=== PATIENT | female | born 1985 | race African-American/Black ===

== ENCOUNTER 2020-02-09 18:15 | Emergency (ER) | payer SELFPAY ==
[2020-02-09] MEDS ORDERED: NA CHLORIDE 0.9% 1,000 ML ONE (19:20)
[2020-02-09] MEDS ORDERED: ACETAMINOPHEN 500 MG TAB ONE (19:20)
[2020-02-09 19:54] LABS: Absolute Lymphocytes (CBC) 1.9 K/uL (0.7-4.9); Basophils % 0.6 % (0-1.3); Hematocrit 33.8 % (36.0-45.0); MPV 9.2 fL (7.6-11.3); RBC Red Blood Cell Count 3.95 M/uL (3.86-4.86)
[2020-02-09] MEDS ORDERED: LORazepam 2 MG/ML VIAL ONE (19:59)
[2020-02-09 20:13] LABS: ALT/SGPT 59 U/L (12-78); AST/SGOT 67 U/L (15-37); Albumin 3.7 g/dL (3.4-5.0); Alkaline Phosphatase 77 U/L (45-117); BUN Blood Urea Nitrogen 8 mg/dL (7-18); Bicarbonate 26 mmol/L (21-32); Bilirubin Direct 0.2 mg/dL (0-0.2); Bilirubin Total 0.6 mg/dL (0.2-1.0); Glucose Level 99 mg/dL (74-106); Lipase 56 U/L (73-393); Protein, Total 8.3 g/dL (6.4-8.2); Sodium Level 134 mmol/L (136-145)
--- NOTE | 2020-02-09 20:18 | RAD REPORT ---
EXAM DESCRIPTION: CTAbdomen Pelvis W Contrast - 02/09/2020 8:03 pm CLINICAL HISTORY: Abdominal pain. right flankl pain COMPARISON: No comparisons TECHNIQUE: Biphasic CT imaging of the abdomen and pelvis was performed with 100 ml non-ionic IV cont rast. All CT scans are performed using dose optimization technique as appropriate and may include automated exposure control or mA/KV adjustment according to patient size. FINDINGS: The lung bases are clear. The liver, spleen, pancreas, adrenal glands are within normal limits. Areas of diminished density are seen in both renal cortices most compatible with pyelonephritis. No abscess. Mild urinary wall thick ening is seen likely indicating cystitis. No bowel obstruction, free air, free fluid or abscess. The appendix is normal. No evidence of signi ficant lymphadenopathy. No suspicious bony findings. IMPRESSION: Mild bilateral pyelonephritis suspected. Cystitis.
[2020-02-09] MEDS ORDERED: CEFTRIAXONE 1000 MG/VIAL ONE (20:42)
[2020-02-09] MEDS ORDERED: NA CHLORIDE 0.9% 50 ML IV ONE (20:43)
[2020-02-09 22:28] LABS: Urine Blood 2+ (NEG); Urine Glucose NEGATIVE (NEG); Urine Protein 1+ (NEG); Urine pH 8.5 (5.0-7.0)
--- NOTE | 2020-02-09 22:44 | ER ---
Nurse's Notes [facility] – [place], [place] Name: Bernadette Rivas Age: 34 yrs Sex: Female : 1985 Arrival Date: 02/09/2020 Time: 18:22 Bed 14 Private MD: Diagnosis: Bilateral Pyelonephritis Presentation: 02/08 18:27 Chief complaint: Patient states: Body aches, fever, right sided abd pain for 5 days. No ll1 appetite. Fever 102 at home. Coronavirus screen: Proceed with normal triage. Patient denies a cough. Patient denies shortness of breath or difficulty breathing. Patient reports a measured and/or subjective temperature greater than 100.4F. Patient denies travel on a cruise ship or to a country the [facility] currently lists as an affected area. Patient denies contact with known and/or suspected case of COVID-19. Ebola Screen: Patient denies travel to an Ebola-affected area in the 21 days before illness onset. Initial Sepsis Screen: Does the patient meet any 2 criteria? Temp <36.0*C (96.8*F)) or > 38.3*C (100.9*F). HR > 90 bpm. Yes Does the patient have a suspected source of infection? Yes: Acute abdominal pain. Risk Assessment: Do you want to hurt yourself or someone else? Patient reports no desire to harm self or others. Onset of symptoms was February 03, 2020. 18:27 Method Of Arrival: Ambulatory ll1 18:27 Acuity: HALLIE 3 ll1 Triage Assessment: 18:45 General: Appears in no apparent distress. uncomfortable, Behavior is calm, cooperative, vc appropriate for age. Pain: Complains of pain in generalized Pain does not radiate. Pain currently is 8 out of 10 on a pain scale. Quality of pain is described as aching. Historical: - Allergies: 18:30 No Known Allergies; ll1 - PSHx: 18:30 ; ll1 - Immunization history:: Flu vaccine is not up to date. - Social history:: Smoking status: Patient denies any tobacco usage or history of. Patient uses alcohol, only on a social basis. Patient/guardian denies using street drugs, tobacco products. Screenin:45 Abuse screen: Denies threats or abuse. Nutritional screening: No deficits noted. vc Tuberculosis screening: No symptoms or risk factors identified. Fall Risk None identified. Assessment: 18:40 Neuro: Level of Consciousness is obeys commands, lethargic, Oriented to person, place, vc time, situation, Appropriate for age. Cardiovascular: Capillary refill < 3 seconds Patient's skin is warm and dry. Rhythm is sinus rhythm. Cardiovascular: Rhythm is sinus tachycardia. Respiratory: Airway is patent Respiratory effort is even, unlabored, Respiratory pattern is regular, symmetrical. GI: No signs and/or symptoms were reported involving the gastrointestinal system. : Urine is cloudy. Derm: Skin temperature is warm. Musculoskeletal: Circulation, motion, and sensation intact. Range of motion: intact in all extremities. 19:40 Reassessment: Patient appears in no apparent distress at this time. Patient and/or vc family updated on plan of care and expected duration. Pain level reassessed. Patient states symptoms have not improved. 20:40 Reassessment: Patient appears in no apparent distress at this time. Patient and/or vc family updated on plan of care and expected duration. Pain level reassessed. Patient states symptoms have not improved. 21:40 Reassessment: Patient appears in no apparent distress at this time. Patient and/or vc family updated on plan of care and expected duration. Pain level reassessed. Patient is alert, oriented x 3, equal unlabored respirations, skin warm/dry/pink. Patient states symptoms have improved. 22:40 Reassessment: Patient appears in no apparent distress at this time. Patient and/or vc family updated on plan of care and expected duration. Pain level reassessed. Patient is alert, oriented x 3, equal unlabored respirations, skin warm/dry/pink. Patient states feeling better. Patient states symptoms have improved. Vital Signs: 18:27 BP 130 / 94; Pulse 115; Resp 17; Temp 101.2; Pulse Ox 96% ; Weight 69.4 kg; Height 5 ll1 ft. 5 in. (165.10 cm); Pain 7/10; 23:00 BP 128 / 92; Pulse 95; Resp 18; Temp 100.9(O); Pulse Ox 98% on R/A; vc 18:27 Body Mass Index 25.46 (69.40 kg, 165.10 cm) ll1 ED Course: 18:22 Patient arrived in ED. am2 18:30 Triage completed. ll1 18:30 Arm band placed on. ll1 18:32 Moses San PA is PHCP. [facility] 18:32 Brandan Landeros MD is Attending Physician. m 19:00 Inserted saline lock: 22 gauge in left antecubital area, using aseptic technique. Blood vc collected. 19:06 Kristy Herman, RN is Primary Nurse. vc 20:04 CT Abd/Pelvis - IV Contrast Only In Process Unspecified. EDMS 23:00 No provider procedures requiring assistance completed. IV discontinued, intact, vc bleeding controlled, No redness/swelling at site. Pressure dressing applied. 02/09 00:52 Patient has correct armband on for positive identification. vc Administered Medications: 02/08 19:45 Drug: Tylenol 1000 mg Route: PO; vc 19:51 Drug: Ativan 0.5 mg Route: IVP; Site: left antecubital; vc 20:12 Drug: NS 0.9% 1000 ml Route: IV; Rate: 1 bolus; Site: right hand; vc 20:43 Drug: Rocephin 2 grams Route: IV; Rate: calculated rate; Site: left antecubital; vc Outcome: 22:44 Discharge ordered by MD. jmm 23:10 Discharged to home ambulatory. vc 23:10 Condition: good 23:10 Discharge instructions given to patient, Instructed on discharge instructions, follow up and referral plans. medication usage, Demonstrated understanding of instructions, follow-up care, medications, Prescriptions given X 2. 23:11 Patient left the ED. ar5 Addendum: 02/13/2020 08:20 Addendum: Culture Results: Positive urine culture. Bacteria is resistant to, has i w intermediate sensitivity, or is not tested against prescribed antibiotics. Report given to MARY for further evaluation and then to registered diet technician for follow up with patient. Phone call Attempt #1 called in Vantin 200 mg PO BID for 10 days, no refills to [facility]. Signatures: Dispatcher [employer] EDMS Moses San PA PA jmm Williams, Irene RN Luisa Acuna Autumn ar5 Kristy Herman RN RN vc Bryant Barrios RN RN ll1 Corrections: (The following items were deleted from the chart) 02/09 02:01 01:58 Pain: vc vc
--- NOTE | 2020-02-09 22:44 | EDPHYS ---
Physician Documentation [facility] Name: Bernadette Rivas Age: 34 yrs Sex: Female : 1985 Arrival Date: 02/09/2020 Time: 18:22 Bed 14 Private MD: ED Physician Brandan Landeros HPI: 02/08 19:16 This 34 yrs old Black Female presents to ER via Ambulatory with complaints of Fever, jmm bodyaches. 19:16 The patient reports fever, not measured (subjective). Onset: The symptoms/episode jmm began/occurred gradually, 5 day(s) ago. Modifying factors: there are no obvious modifying factors. Associated signs and symptoms: Pertinent positives: abdominal pain, backache. This is a 34 year old female with no chronic medical conditions that presents to the ED with complaints of right flank pain beginning this past satuday with fever. Patient states she had had dysuria in late december that resolved after 2 days. Denies vomiting or diarrhea. . Historical: - Allergies: 18:30 No Known Allergies; ll1 - PSHx: 18:30 ; ll1 - Immunization history:: Flu vaccine is not up to date. - Social history:: Smoking status: Patient denies any tobacco usage or history of. Patient uses alcohol, only on a social basis. Patient/guardian denies using street drugs, tobacco products. ROS: 19:16 Cardiovascular: Negative for chest pain, palpitations, and edema, Respiratory: Negative jmm for shortness of breath, cough, wheezing, and pleuritic chest pain. 19:16 Constitutional: Positive for fever. 19:16 Abdomen/GI: Positive for abdominal pain. 19:16 Back: Positive for flank pain, on the right. 19:16 All other systems are negative. Exam: 19:16 Constitutional: This is a well developed, well nourished patient who is awake, alert, jmm and in no acute distress. Head/Face: atraumatic. Eyes: EOMI, no conjunctival erythema appreciated ENT: Moist Mucus Membranes Neck: Trachea midline, Supple Chest/axilla: Normal chest wall appearance and motion. 19:16 Skin: General appearance color normal MS/ Extremity: Moves all extremities, no obvious deformities appreciated, no edema noted to the lower extremities Neuro: Awake and alert, normal gait 19:16 Cardiovascular: Rate: tachycardic, Rhythm: Pulses: no pulse deficits are appreciated. 19:16 Abdomen/GI: Inspection: abdomen appears normal, Bowel sounds: normal, Palpation: abdomen is soft and non-tender, in all quadrants. 19:16 Back: CVA tenderness, that is mild, is noted on the right. Vital Signs: 18:27 BP 130 / 94; Pulse 115; Resp 17; Temp 101.2; Pulse Ox 96% ; Weight 69.4 kg; Height 5 ll1 ft. 5 in. (165.10 cm); Pain 7/10; 23:00 BP 128 / 92; Pulse 95; Resp 18; Temp 100.9(O); Pulse Ox 98% on R/A; vc 18:27 Body Mass Index 25.46 (69.40 kg, 165.10 cm) ll1 MDM: 18:46 Patient medically screened. [facility] 22:42 Data reviewed: vital signs, nurses notes. Counseling: I had a detailed discussion with alison the patient and/or guardian regarding: the historical points, exam findings, and any diagnostic results supporting the discharge/admit diagnosis, lab results, radiology results, the need for outpatient follow up, to return to the emergency department if symptoms worsen or persist or if there are any questions or concerns that arise at home. ED course: Patient is alert and non toxic in appearance in the ED. Patient is advised to follow up with pcp and otherwise given strict return precautions. Patient understood and agrees with the plan of care. . 02/08 18:48 Order name: Basic Metabolic Panel; Complete Time: 20:22 [facility] 02/08 18:48 Order name: CBC with Diff; Complete Time: 20:10 [facility] 02/08 18:48 Order name: Hepatic Function; Complete Time: 20:22 [facility] 02/08 18:48 Order name: Lipase; Complete Time: 20:22 [facility] 02/08 18:48 Order name: Urine Culture [facility] 02/08 18:48 Order name: Blood Culture Adult (2) [facility] 02/08 18:48 Order name: Lactate; Complete Time: 20:22 [facility] 02/08 18:48 Order name: Procalcitonin; Complete Time: 22:27 [facility] 02/08 19:07 Order name: CT Abd/Pelvis - IV Contrast Only; Complete Time: 20:22 [facility] 02/08 19:45 Order name: CREATININE WHOLE BLOOD; Complete Time: 19:50 [facility] 02/08 20:37 Order name: Urine Dipstick--Ancillary (enter results); Complete Time: 22:30 [facility] 02/08 20:37 Order name: Urine --Ancillary (enter results); Complete Time: 22:30 [facility] 02/08 18:48 Order name: IV Saline Lock; Complete Time: 20:12 [facility] 18:48 Order name: Labs collected and sent; Complete Time: 20:11 [facility] 18:48 Order name: Urine Dipstick-Ancillary (obtain specimen); Complete Time: 20:11 [facility] Administered Medications: 19:45 Drug: Tylenol 1000 mg Route: PO; vc 19:51 Drug: Ativan 0.5 mg Route: IVP; Site: left antecubital; vc 20:12 Drug: NS 0.9% 1000 ml Route: IV; Rate: 1 bolus; Site: right hand; vc 20:43 Drug: Rocephin 2 grams Route: IV; Rate: calculated rate; Site: left antecubital; vc Disposition: 02/09 17:36 Co-signature as Attending Physician, Brandan Landeros MD I agree with the assessment and kdr plan of care. Disposition: 02/09/20 22:44 Discharged to Home. Impression: Bilateral Pyelonephritis. - Condition is Stable. - Discharge Instructions: Pyelonephritis, Adult. - Prescriptions for Zofran ODT 4 mg Oral tablet,disintegrating - place 1 tablet by TRANSLINGUAL route every 4-6 hours; 20 tablet. Cipro 500 mg Oral Tablet - take 1 tablet by ORAL route every 12 hours for 10 days; 20 tablet. - Medication Reconciliation Form, Thank You Letter, Antibiotic Education, Prescription Opioid Use form. - Follow up: Private Physician; When: 2 - 3 days; Reason: Recheck today's complaints, Continuance of care, Re-evaluation by your physician. Signatures: Dispatcher [facility] HospitalBrandan Noyola MD MD kdr Mickail, Joel, PA PA [facility] Arlene Vazquez ar5 Kristy Herman RN RN Bryant Rogers RN RN ll1 Corrections: (The following items were deleted from the chart) 02/08 23:11 22:44 02/09/2020 22:44 Discharged to Home. Impression: Bilateral Pyelonephritis. ar5 Condition is Stable. Forms are Medication Reconciliation Form, Thank You Letter, Antibiotic Education, Prescription Opioid Use. Follow up: Private Physician; When: 2 - 3 days; Reason: Recheck today's complaints, Continuance of care, Re-evaluation by your physician. alison
[2020-02-09 23:16] VITALS: BP 130/94; TEMP 101.2; O2SAT 96
== END 2020-02-09 23:11 | disposition home or self-care (01) ==
LOC: ER 18:15
DX: N12 Tubulo-interstitial nephritis, not specified as acute or chronic (principal)
CPT/HCPCS: 36415; 74177; 80048; 80076; 81003; 81025; 82565; 83605; 83690; 84145; 85025; 87040; 87077; 87086; 87088; 87186; 96374; 96375; 99284; J7030; Q9967